=== PATIENT | male | born 1975 | race Caucasian/White ===

== ENCOUNTER → 2024-05-20 13:39 | Outpatient (REF) | payer SELFPAY | LOC: RAD 13:39 | PROVIDERS: ATTENDING PHYSICIAN Nurse Practitioner Adult Health; FAMILY PHYSICIAN Nurse Practitioner | DX: E11.9 Type 2 diabetes mellitus without complications (principal); R73.01 Impaired fasting glucose | CPT/HCPCS: 75571 ==

== ENCOUNTER → 2024-06-03 15:27 | Outpatient (REF) | payer OTHER, SELFPAY | LOC: RAD 15:27 | PROVIDERS: ATTENDING PHYSICIAN Nurse Practitioner Adult Health; FAMILY PHYSICIAN Nurse Practitioner | DX: E11.9 Type 2 diabetes mellitus without complications (principal); R73.9 Hyperglycemia, unspecified | CPT/HCPCS: 76700 ==